=== PATIENT | female | born 2000 | race Caucasian/White ===

== ENCOUNTER 2024-03-07 18:06 | Emergency (ER) | payer BC ==
[~2024-03-07] VITALS: Ht 170.2 cm; Wt 86.2 kg
[2024-03-07 18:37] VITALS: BP_SYST 149; PULSE 85; TEMP 98.1; O2SAT 97
[2024-03-07] MEDS ORDERED: IBUP-1969 PO (19:41)
[2024-03-07] MEDS ORDERED: HYDR-3917 PO (19:41)
[2024-03-07 19:45] VITALS: BP_SYST 149; PULSE 85; RESP 16; TEMP 98.1; O2SAT 97
== END 2024-03-07 19:57 | disposition home or self-care (01) ==
LOC: SED 18:06
DX: S93.401A Sprain of unspecified ligament of right ankle, initial encounter (principal); Z79.899 Other long term (current) drug therapy; V18.2XXA Unspecified pedal cyclist injured in noncollision transport accident in nontraffic accident, initial encounter; Y93.89 Activity, other specified; Y92.89 Other specified places as the place of occurrence of the external cause; Y99.8 Other external cause status
CPT/HCPCS: 81025; 99284